=== PATIENT | male | born 1985 | race Caucasian/White ===

== ENCOUNTER 2018-12-16 07:40 | Observation (INO) ==
[2018-12-16 08:37] LABS: BASO# 0.02 X1000 (0.0-0.2); BASO% 0.2 % (0.0-0.8); EOS# 0.08 X1000 (0.0-0.7); EOS% 0.7 % (0.0-10.0); HEMATOCRIT 43.7 % (42.0-52.0); HEMOGLOBIN 15.8 g/dL (14.0-18.0); IMM GRAN# 0.03 X1000 (0.0-0.04); IMM GRAN% 0.3 % (0.0-0.5); LYMPH# 1.58 X1000 (1.2-3.4); LYMPH% 14.2 % (20.5-51.1); MCH 31.7 PG (27-31); MCHC 36.2 g/dL (33-37); MCV 87.6 FL (81-99); MONO# 0.73 X1000 (0.11-0.59); MONO% 6.6 % (1.7-9.3); MPV 10.5 FL (7.4-10.4); NEUT# 8.66 X1000 (1.4-6.5); PLT 264 X1000 (130-400); RBC 4.99 XMIL (4.7-6.1); RDW 12.3 % (11.5-14.5)
[2018-12-16 08:55] LABS: AGAP 8; ALBUMIN 4.4 g/dL (3.5-5.0); ALKALINE PHOSPHATASE 69 U/L (32-122); BUN 12 mg/dL (8-22); CALCIUM 8.7 mg/dL (8.8-10.2); CHLORIDE 105 mmol/L (98-107); COSMO 279; CREATININE 0.9 mg/dL (0.7-1.2); ESTIMATED GFR > 60; GLUCOSE 123 mg/dL (70-104); GOT 39 U/L (10-34); GPT 34 U/L (10-44); POTASSIUM 3.8 mmol/L (3.5-5.1); SODIUM 139 mmol/L (136-145); TCO2 26 mmol/L (25-35); TOTAL PROTEIN 7.3 g/dL (6.3-8.3)
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
[2018-12-16 10:07] LABS: URINE SOURCE VOIDED
[2018-12-16] MEDS ORDERED: DERMABOND ONE (10:13)
[2018-12-16] MEDS ORDERED: DIPHTHERIA/TETANUS ADULT IM ONE (10:15)
[2018-12-16] MEDS ORDERED: NORCO-5 PO ONE (10:16)
[2018-12-16 10:25] LABS: BILIRUBIN URINE NEGATIVE (NEGATIVE); BLOOD URINE 1+ (NEGATIVE); CLARITY CLEAR (CLEAR); COLOR YELLOW; GLUCOSE URINE NEGATIVE (NEGATIVE); KETONE URINE NEGATIVE (NEGATIVE); LEUKOCYTES URINE NEGATIVE (NEGATIVE); NITRITE URINE NEGATIVE (NEGATIVE); PROTEIN URINE TRACE mg/dL (NEGATIVE); SP GRAVITY URINE 1.015; UROBILINOGEN URINE NORMAL
[2018-12-16 10:29] LABS: URINE BACTERIA NEGATIVE /HFP; URINE CAST NONE SEEN /LPF; URINE CRYSTAL NONE SEEN /HPF; URINE EPITHELIAL CELLS <10 /HPF (<10); URINE RBC <10 /HPF (<10); URINE WBC <10 /HPF (<10); URINE YEAST NONE SEEN /HPF
[2018-12-16] MEDS ORDERED: NS 1,000 ML IV ONE (12:30)
[2018-12-16] MEDS ORDERED: ZOFRAN IV PRN (12:30)
[2018-12-16] MEDS ORDERED: TYLENOL PO PRN (13:17)
[2018-12-16] MEDS ORDERED: SALINE LOCK IV FLUID XX ONE (13:18)
[2018-12-16 16:51] VITALS: BP 110/64
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
== END 2018-12-16 18:47 | disposition home or self-care (01) ==
LOC: P.ED 07:40 → 4N 12:27 → INTOOBSV 12:27
PROVIDERS: ADMIT Surgery; ATTEND Family Medicine
CPT/HCPCS: 70450; 71260; 72125; 74177; 80053; 81001; 82150; 84484; 85025; A9270; Q9967